=== PATIENT | male | born 1995 | race Caucasian/White ===

== ENCOUNTER → 2016-06-14 | Outpatient (CLI) | payer OTHER ==
[~2016-06-14] MED LIST: BENTYL10 MG PO
== END ==
LOC: ECHO 06-09 13:30 → HEART 5 06-09 13:30 → ECHO 11:26 → HEART 5 11:26
DX: R00.2 Palpitations (principal); Q67.6 Pectus excavatum; R06.02 Shortness of breath
CPT/HCPCS: ECHO; 93306

== ENCOUNTER → 2016-06-22 | Outpatient (CLI) | payer OTHER | LOC: HEART 5 09:09 | DX: J44.9 Chronic obstructive pulmonary disease, unspecified (principal); R06.02 Shortness of breath | CPT/HCPCS: 94010 ==

== ENCOUNTER → 2016-06-30 | Outpatient (CLI) | payer OTHER | LOC: HEART 5 10:21 | DX: R55 Syncope and collapse (principal); R00.2 Palpitations ==

== ENCOUNTER → 2016-09-19 | Outpatient (CLI) | payer OTHER ==
[2016-09-19 10:57] LABS: HEMOGLOBIN 15.4 gm/dl (14.0-17.5); RED BLOOD COUNT 4.92 M/UL (4.20-5.50); WHITE BLOOD COUNT 6.2 K/UL (4.5-11.0)
[2016-09-19 11:17] LABS: BUN/CREATININE RATIO 11 (0-10)
== END ==
LOC: LAB 10:11
PROVIDERS: Internal Medicine Cardiovascular Disease
DX: R00.2 Palpitations (principal); R55 Syncope and collapse; I47.1 Supraventricular tachycardia
CPT/HCPCS: 36415; 71020; 80048; 80061; 80076; 85025

== ENCOUNTER 2016-09-20 09:23 | Outpatient (CLI) | payer OTHER ==
[~2016-09-20] VITALS: Ht 170.2 cm; Wt 59.2 kg
[2016-09-20] MEDS ORDERED: BENTYL10 MG PO (10:04)
== END 2016-09-21 08:00 | disposition home or self-care (01) ==
LOC: CATH 09:23 → PROG CARE 13:00 → CATH 09-21 08:00
DX: I47.1 Supraventricular tachycardia (principal); R00.2 Palpitations; R55 Syncope and collapse; Q67.6 Pectus excavatum; G43.909 Migraine, unspecified, not intractable, without status migrainosus; K58.9 Irritable bowel syndrome, unspecified; J30.9 Allergic rhinitis, unspecified; Z79.899 Other long term (current) drug therapy
CPT/HCPCS: 93005; 93609; 93621; 93623; 99152; 99153; C1730; C1733; C1766; J1200; J1644; J2250; J3010; J7040; J7050

== ENCOUNTER 2020-08-19 07:58 | Emergency (ER) | payer OTHER ==
[2020-08-19] MEDS ORDERED: NAPROSYN500 MG PO (09:28)
[2020-08-19] MEDS ORDERED: CEPHALEXIN500 M1 PO (09:28)
== END 2020-08-19 09:51 | disposition home or self-care (01) ==
LOC: ER1 07:58
DX: S62.637A Displaced fracture of distal phalanx of left little finger, initial encounter for closed fracture (principal); Z88.8 Allergy status to other drugs, medicaments and biological substances; W23.0XXA Caught, crushed, jammed, or pinched between moving objects, initial encounter; Y92.89 Other specified places as the place of occurrence of the external cause; Y99.0 Civilian activity done for income or pay; Z23 Encounter for immunization
CPT/HCPCS: 12002; 73140; 90471; 90715; 99283